=== PATIENT | female | born 1945 ===

== ENCOUNTER 2020-08-24 06:34 | Day surgery (SDC) | payer OTHER ==
[~2020-08-24 06:34] MED LIST: DERMACINRX5000 UNIT PO; FOLIC ACID0.8 M1 PO; NORVASC2.5 M1 PO; PLAQUENIL PO
== END 2020-08-24 14:26 | disposition home or self-care (01) ==
LOC: CIR.AMB 06:34
PROVIDERS: ATTEND Anesthesiology Pain Medicine
DX: M48.061 Spinal stenosis, lumbar region without neurogenic claudication (principal); M99.63 Osseous and subluxation stenosis of intervertebral foramina of lumbar region; Z20.828 Contact with and (suspected) exposure to other viral communicable diseases